=== PATIENT | female | born 1985 | race African-American/Black ===

== ENCOUNTER 2020-10-30 12:41 | Inpatient (IN) | payer OTHER ==
[2020-10-30 13:14] VITALS: BMI 25.4
[2020-10-30] MEDS ORDERED: ONDANSETRON *ODT* 4 MG TABLET SL PRN (14:27)
[2020-10-30] MEDS ORDERED: ACETAMINOPHEN 325 MG TABLET (FP) PO PRN ×2 (14:27)
[2020-10-30] MEDS ORDERED: IBUPROFEN 400 MG TABLET (FP) PO PRN (14:27)
[2020-10-30] MEDS ORDERED: MAGNESIUM HYDROX 2400MG/30ML ORAL SUSPENSION 30 ML CUP PO PRN (14:27)
[2020-10-30] MEDS ORDERED: MAG HYDROX/AL HYDROX/SIMETH 30 ML UNIT-DOSE CUP PO PRN (14:27)
[2020-10-30] MEDS ORDERED: MENTHOL/PHENOL 1 EACH UD MM PRN (14:27)
[2020-10-30] MEDS ORDERED: METHOCARBAMOL 500 MG TABLET PO PRN (14:27)
[2020-10-30] MEDS ORDERED: NICOTINE POLACRILEX 2 MG GUM BUC PRN (14:27)
[2020-10-30] MEDS ORDERED: BISMUTH SUBSALICYLATE 524 MG/30 ML UD PO PRN (14:27)
[2020-10-30] MEDS ORDERED: MAGNESIUM CITRATE 300 ML BOTTLE PO PRN (14:27)
[2020-10-30] MEDS ORDERED: chlordiazePOXIDE HCL 25 MG CAPSULE PO PRN (14:27)
[2020-10-30] MEDS: chlordiazePOXIDE HCL 25 MG CAPSULE PO SCH ×2 (17:10→22:16)
[2020-10-30] MEDS: hydrOXYzine PAMOATE 25 MG CAPSULE (FP) PO SCH ×2 (17:11→22:15)
[2020-10-30] MEDS ORDERED: MELATONIN 5 MG TABLETS PO SCH (22:00)
[2020-10-30] MEDS: GABAPENTIN 300 MG CAPSULE PO SCH (22:15)
[2020-10-30] MEDS: THIAMINE HCL 100 MG TABLET (FP) PO SCH (22:15)
[2020-10-30] MEDS: DIVALPROEX SODIUM 500 MG TABLET E.C. PO SCH (22:15)
[2020-10-31] MEDS: chlordiazePOXIDE HCL 25 MG CAPSULE PO SCH ×4 (05:35→22:14)
[2020-10-31] MEDS: hydrOXYzine PAMOATE 25 MG CAPSULE (FP) PO SCH ×5 (05:35→22:12)
[2020-10-31] MEDS: GABAPENTIN 300 MG CAPSULE PO SCH ×2 (10:14→22:12)
[2020-10-31] MEDS: DIVALPROEX SODIUM 500 MG TABLET E.C. PO SCH ×2 (10:14→22:12)
[2020-10-31] MEDS: PRENATAL VITAMINS W/ FOLIC ACID TABLET (FP) PO SCH (10:15)
[2020-10-31] MEDS ORDERED: DIVALPROEX SODIUM 500 MG TABLET E.C. PO SCH (10:30)
[2020-10-31 10:41] LABS: POTASSIUM 4.2 mmol/L (3.5-5.1)
[2020-10-31 10:42] LABS: HEMATOCRIT 36.6 % (32.4-45.2); HEMOGLOBIN 12.5 GM/dL (10.7-15.3); MCH 31.6 pg (25.7-33.7); MCHC 34.1 g/dl (32.0-36.0); MEAN CELL VOLUME 92.7 fl (80-96); MEAN PLT VOLUME 10.2 fl (7.5-11.1); PLATELET COUNT 255 K/MM3 (134-434); RBC 3.95 M/mm3 (3.60-5.2); RDW 14.8 % (11.6-15.6); WHITE BLOOD COUNT 4.2 K/mm3 (4.0-10.0)
[2020-10-31 10:44] LABS: ALBUMIN 2.8 g/dl (3.4-5.0); CALCIUM 8.4 mg/dL (8.5-10.1)
[2020-10-31 10:46] LABS: BLOOD UREA NITROGEN 12.2 mg/dL (7-18)
[2020-10-31 10:48] LABS: BILIRUBIN,TOTAL 0.7 mg/dL (0.2-1); TOT PROT 6.3 g/dl (6.4-8.2)
[2020-10-31] MEDS ORDERED: FLU VACCINE (FLULAVAL) PF 60 MCG/0.5 ML SYRINGE 2020-2021 IM ONE (12:00)
[2020-10-31] MEDS: MELATONIN 5 MG TABLETS PO PRN (22:12)
[2020-10-31] MEDS: THIAMINE HCL 100 MG TABLET (FP) PO SCH (22:12)
[2020-11-01] MEDS: chlordiazePOXIDE HCL 25 MG CAPSULE PO SCH ×4 (05:47→22:11)
[2020-11-01] MEDS: hydrOXYzine PAMOATE 25 MG CAPSULE (FP) PO SCH ×5 (05:47→22:11)
[2020-11-01] MEDS: PRENATAL VITAMINS W/ FOLIC ACID TABLET (FP) PO SCH (10:18)
[2020-11-01] MEDS: GABAPENTIN 300 MG CAPSULE PO SCH ×2 (10:18→22:11)
[2020-11-01] MEDS: DIVALPROEX SODIUM 500 MG TABLET E.C. PO SCH ×2 (10:18→22:11)
[2020-11-01] MEDS: DARUNAVIR/COB/EMTRI/TENOF (SYMTUZA) TABLET (NF) PO SCH (13:01)
[2020-11-01] MEDS: THIAMINE HCL 100 MG TABLET (FP) PO SCH (22:11)
[2020-11-01] MEDS: MELATONIN 5 MG TABLETS PO PRN (22:11)
[2020-11-02] MEDS ORDERED: chlordiazePOXIDE HCL 10 MG CAPSULE PO PRN
[2020-11-02] MEDS: chlordiazePOXIDE HCL 10 MG CAPSULE PO SCH ×2 (05:50→10:08)
[2020-11-02] MEDS: hydrOXYzine PAMOATE 25 MG CAPSULE (FP) PO SCH ×2 (05:50→10:08)
[2020-11-02 09:25] VITALS: BP 103/60; PULSE 93; TEMP 98.2
[2020-11-02] MEDS: PRENATAL VITAMINS W/ FOLIC ACID TABLET (FP) PO SCH (10:07)
[2020-11-02] MEDS: GABAPENTIN 300 MG CAPSULE PO SCH (10:08)
[2020-11-02] MEDS: DIVALPROEX SODIUM 500 MG TABLET E.C. PO SCH (10:08)
[2020-11-02] MEDS: DARUNAVIR/COB/EMTRI/TENOF (SYMTUZA) TABLET (NF) PO SCH (10:08)
[2020-11-03] MEDS ORDERED: chlordiazePOXIDE HCL 10 MG CAPSULE PO SCH (05:00)
[2020-11-04] MEDS ORDERED: chlordiazePOXIDE HCL 10 MG CAPSULE PO ONE (05:00)
== END 2020-11-02 11:45 | disposition home or self-care (01) | DRG 774 ==
LOC: YASAS 12:41 → Y3N 15:03
PROVIDERS: ADMIT Allergy & Immunology; ATTEND Allergy & Immunology
PROC: HZ2ZZZZ Detoxification Services for Substance Abuse Treatment (ICD-10-PCS; principal; 2020-10-28)
DX: F10.230 Alcohol dependence with withdrawal, uncomplicated (principal); F14.20 Cocaine dependence, uncomplicated; F12.20 Cannabis dependence, uncomplicated; F17.213 Nicotine dependence, cigarettes, with withdrawal; F19.24 Other psychoactive substance dependence with psychoactive substance-induced mood disorder; F19.282 Other psychoactive substance dependence with psychoactive substance-induced sleep disorder; F31.9 Bipolar disorder, unspecified; Z21 Asymptomatic human immunodeficiency virus [HIV] infection status; K21.9 Gastro-esophageal reflux disease without esophagitis; M54.5 Low back pain; G89.29 Other chronic pain; D57.3 Sickle-cell trait; G62.9 Polyneuropathy, unspecified; G40.909 Epilepsy, unspecified, not intractable, without status epilepticus; Z20.2 Contact with and (suspected) exposure to infections with a predominantly sexual mode of transmission
CPT/HCPCS: 36415; 80053; 81025; 85027; 86593; 86780; 93005; 93010; C9803; G0008; Q2036; U0003

== ENCOUNTER 2021-10-13 11:45 | Inpatient (IN) | payer OTHER ==
[2021-10-13] MEDS ORDERED: MAG HYDROX/AL HYDROX/SIMETH 30 ML UNIT-DOSE CUP PO PRN (12:55)
[2021-10-13] MEDS ORDERED: ONDANSETRON *ODT* 4 MG TABLET SL PRN (12:55)
[2021-10-13] MEDS ORDERED: METHOCARBAMOL 500 MG TABLET PO PRN (12:55)
[2021-10-13] MEDS ORDERED: IBUPROFEN 400 MG TABLET (FP) PO PRN (12:55)
[2021-10-13] MEDS ORDERED: MAGNESIUM HYDROX 2400MG/30ML ORAL SUSPENSION 30 ML CUP PO PRN (12:55)
[2021-10-13] MEDS ORDERED: LORazepam 1 MG TABLET PO PRN (12:55)
[2021-10-13] MEDS ORDERED: ACETAMINOPHEN 325 MG TABLET (FP) PO PRN ×2 (12:55)
[2021-10-13] MEDS ORDERED: MAGNESIUM CITRATE 300 ML BOTTLE PO PRN (12:55)
[2021-10-13] MEDS ORDERED: MENTHOL/PHENOL 1 EACH UD MM PRN (12:55)
[2021-10-13] MEDS ORDERED: BISMUTH SUBSALICYLATE 524 MG/30 ML PO PRN (12:55)
[2021-10-13 14:22] VITALS: BMI 25.2
[2021-10-13] MEDS: hydrOXYzine PAMOATE 25 MG CAPSULE (FP) PO SCH ×3 (15:31→22:43)
[2021-10-13] MEDS: LORazepam 2 MG TABLET PO SCH ×2 (17:18→22:45)
[2021-10-13] MEDS ORDERED: DIVALPROEX SODIUM 500 MG TABLET E.C. PO SCH (22:00)
[2021-10-13] MEDS: THIAMINE HCL 100 MG TABLET (FP) PO SCH (22:43)
[2021-10-13] MEDS: DIVALPROEX NA *ER* EXTEND REL 500 MG TABLET.SA (FP) PO SCH (22:43)
[2021-10-13] MEDS: FLUOCINONIDE 0.05% CREAM (15 GM TUBE) TP SCH (22:43)
[2021-10-13] MEDS: MELATONIN 5 MG TABLETS PO SCH (22:43)
[2021-10-13] MEDS: GABAPENTIN 300 MG CAPSULE PO SCH (22:43)
[2021-10-13] MEDS: FAMOTIDINE 40 MG/5 ML ORAL SUSPENSION PO SCH (22:44)
[2021-10-14] MEDS: hydrOXYzine PAMOATE 25 MG CAPSULE (FP) PO SCH ×5 (06:33→22:20)
[2021-10-14] MEDS: LORazepam 2 MG TABLET PO SCH ×4 (06:33→22:21)
[2021-10-14] MEDS: DARUNAVIR/COB/EMTRI/TENOF (SYMTUZA) TABLET (NF) PO SCH (07:33)
[2021-10-14] MEDS: FLUOCINONIDE 0.05% CREAM (15 GM TUBE) TP SCH ×2 (10:12→22:19)
[2021-10-14] MEDS: GABAPENTIN 300 MG CAPSULE PO SCH ×2 (10:13→22:20)
[2021-10-14] MEDS: PANTOPRAZOLE 40 MG TABLET PO SCH (10:13)
[2021-10-14] MEDS: DIVALPROEX NA *ER* EXTEND REL 500 MG TABLET.SA (FP) PO SCH ×2 (10:13→22:20)
[2021-10-14] MEDS: FAMOTIDINE 40 MG/5 ML ORAL SUSPENSION PO SCH ×2 (10:14→22:19)
[2021-10-14] MEDS: PRENATAL VITAMINS W/ FOLIC ACID TABLET (FP) PO SCH (10:14)
[2021-10-14 10:33] LABS: HEMATOCRIT 39.2 % (32.4-45.2); HEMOGLOBIN 13.2 GM/dL (10.7-15.3); MCH 30.9 pg (25.7-33.7); MCHC 33.6 g/dl (32.0-36.0); MEAN PLT VOLUME 11.2 fl (7.5-11.1); PLATELET COUNT 210 10^3/uL (134-434); RBC 4.26 M/mm3 (3.60-5.2); RDW 14.8 % (11.6-15.6); WHITE BLOOD COUNT 4.3 K/mm3 (4.0-10.0)
[2021-10-14 10:38] LABS: ALBUMIN 3.5 g/dl (3.4-5.0); BLOOD UREA NITROGEN 15.8 mg/dL (7-18); CALCIUM 9.4 mg/dL (8.5-10.1)
[2021-10-14 10:41] LABS: CREATININE 1.3 mg/dL (0.55-1.3)
[2021-10-14 10:43] LABS: BILIRUBIN,TOTAL 0.5 mg/dL (0.2-1); TOT PROT 7.7 g/dl (6.4-8.2)
[2021-10-14] MEDS: ARIPiprazole 5 MG TABLET PO SCH (10:47)
[2021-10-14] MEDS: NICOTINE 10 MG CARTRIDGE (INHALER) IH PRN (22:19)
[2021-10-14] MEDS: THIAMINE HCL 100 MG TABLET (FP) PO SCH (22:20)
[2021-10-14] MEDS: MELATONIN 5 MG TABLETS PO SCH (22:20)
[2021-10-15] MEDS: LORazepam 1 MG TABLET PO SCH ×4 (05:56→22:28)
[2021-10-15] MEDS: hydrOXYzine PAMOATE 25 MG CAPSULE (FP) PO SCH ×5 (05:58→22:27)
[2021-10-15] MEDS: DARUNAVIR/COB/EMTRI/TENOF (SYMTUZA) TABLET (NF) PO SCH (07:27)
[2021-10-15] MEDS: FAMOTIDINE 40 MG/5 ML ORAL SUSPENSION PO SCH ×2 (10:53→22:27)
[2021-10-15] MEDS: FLUOCINONIDE 0.05% CREAM (15 GM TUBE) TP SCH ×2 (10:54→22:30)
[2021-10-15] MEDS: GABAPENTIN 300 MG CAPSULE PO SCH ×2 (10:54→22:27)
[2021-10-15] MEDS: ARIPiprazole 5 MG TABLET PO SCH (10:54)
[2021-10-15] MEDS: PRENATAL VITAMINS W/ FOLIC ACID TABLET (FP) PO SCH (10:54)
[2021-10-15] MEDS: PANTOPRAZOLE 40 MG TABLET PO SCH (10:54)
[2021-10-15] MEDS: DIVALPROEX NA *ER* EXTEND REL 500 MG TABLET.SA (FP) PO SCH ×2 (10:55→22:27)
[2021-10-15] MEDS: MELATONIN 5 MG TABLETS PO SCH (22:27)
[2021-10-15] MEDS: THIAMINE HCL 100 MG TABLET (FP) PO SCH (22:28)
[2021-10-16] MEDS ORDERED: LORazepam 0.5 MG TABLET PO PRN
[2021-10-16] MEDS: hydrOXYzine PAMOATE 25 MG CAPSULE (FP) PO SCH ×5 (06:15→22:07)
[2021-10-16] MEDS: LORazepam 0.5 MG TABLET PO SCH ×4 (06:15→22:07)
[2021-10-16] MEDS: NICOTINE 10 MG CARTRIDGE (INHALER) IH PRN (09:28)
[2021-10-16] MEDS: FAMOTIDINE 40 MG/5 ML ORAL SUSPENSION PO SCH ×2 (10:09→23:40)
[2021-10-16] MEDS: PRENATAL VITAMINS W/ FOLIC ACID TABLET (FP) PO SCH (10:09)
[2021-10-16] MEDS: ARIPiprazole 5 MG TABLET PO SCH (10:09)
[2021-10-16] MEDS: GABAPENTIN 300 MG CAPSULE PO SCH ×2 (10:09→22:07)
[2021-10-16] MEDS: PANTOPRAZOLE 40 MG TABLET PO SCH (10:09)
[2021-10-16] MEDS: FLUOCINONIDE 0.05% CREAM (15 GM TUBE) TP SCH ×2 (10:12→23:34)
[2021-10-16] MEDS: DIVALPROEX NA *ER* EXTEND REL 500 MG TABLET.SA (FP) PO SCH ×2 (10:12→23:34)
[2021-10-16] MEDS: DARUNAVIR/COB/EMTRI/TENOF (SYMTUZA) TABLET (NF) PO SCH (10:12)
[2021-10-16] MEDS: THIAMINE HCL 100 MG TABLET (FP) PO SCH (22:07)
[2021-10-16] MEDS: MELATONIN 5 MG TABLETS PO SCH (22:07)
[2021-10-17] MEDS ORDERED: LORazepam 0.5 MG TABLET PO ONE (05:00)
[2021-10-17] MEDS: hydrOXYzine PAMOATE 25 MG CAPSULE (FP) PO SCH ×3 (06:07→14:46)
[2021-10-17] MEDS: DARUNAVIR/COB/EMTRI/TENOF (SYMTUZA) TABLET (NF) PO SCH (07:05)
[2021-10-17] MEDS: PRENATAL VITAMINS W/ FOLIC ACID TABLET (FP) PO SCH (10:19)
[2021-10-17] MEDS: FAMOTIDINE 40 MG/5 ML ORAL SUSPENSION PO SCH (10:20)
[2021-10-17] MEDS: GABAPENTIN 300 MG CAPSULE PO SCH (10:20)
[2021-10-17] MEDS: PANTOPRAZOLE 40 MG TABLET PO SCH (10:20)
[2021-10-17] MEDS: DIVALPROEX NA *ER* EXTEND REL 500 MG TABLET.SA (FP) PO SCH (10:20)
[2021-10-17] MEDS: ARIPiprazole 5 MG TABLET PO SCH (10:20)
[2021-10-17] MEDS: FLUOCINONIDE 0.05% CREAM (15 GM TUBE) TP SCH (10:25)
[2021-10-17 13:21] VITALS: BP 101/55; PULSE 72; TEMP 97.8
== END 2021-10-17 15:47 | disposition other institution (70) | DRG 774 ==
LOC: YASAS 11:45 → Y3N 14:06
PROVIDERS: ADMIT Allergy & Immunology; ATTEND Allergy & Immunology
PROC: HZ2ZZZZ Detoxification Services for Substance Abuse Treatment (ICD-10-PCS; principal; 2021-10-13)
DX: F10.230 Alcohol dependence with withdrawal, uncomplicated (principal); F14.20 Cocaine dependence, uncomplicated; F12.20 Cannabis dependence, uncomplicated; F17.213 Nicotine dependence, cigarettes, with withdrawal; F31.9 Bipolar disorder, unspecified; F19.24 Other psychoactive substance dependence with psychoactive substance-induced mood disorder; K21.9 Gastro-esophageal reflux disease without esophagitis; Z21 Asymptomatic human immunodeficiency virus [HIV] infection status; G62.9 Polyneuropathy, unspecified; G40.909 Epilepsy, unspecified, not intractable, without status epilepticus; D57.3 Sickle-cell trait; Z86.19 Personal history of other infectious and parasitic diseases; Z56.0 Unemployment, unspecified
CPT/HCPCS: 36415; 80053; 85027; 86593; 86780; C9803; U0003; U0005

== ENCOUNTER 2021-10-17 16:03 | Inpatient (IN) | payer OTHER ==
[~2021-10-17 16:03] MED LIST: ACETAMINOPHEN 325 MG TABLET (FP) PO PRN; LOPERAMIDE HCL 2 MG CAPSULE PO PRN; MAGNESIUM CITRATE 300 ML BOTTLE PO PRN; MAGNESIUM HYDROX 2400MG/30ML ORAL SUSPENSION 30 ML CUP PO PRN
[2021-10-17] MEDS: GABAPENTIN 300 MG CAPSULE PO SCH (21:41)
[2021-10-17] MEDS: MELATONIN 5 MG TABLETS PO SCH (21:42)
[2021-10-17] MEDS: THIAMINE HCL 100 MG TABLET (FP) PO SCH (21:42)
[2021-10-17] MEDS: NICOTINE 10 MG CARTRIDGE (INHALER) IH PRN (21:44)
[2021-10-17] MEDS ORDERED: DIVALPROEX NA *ER* EXTEND REL 500 MG TABLET.SA (FP) PO ONE (22:00)
[2021-10-18] MEDS ORDERED: SYMTUZA PO SCH (10:00)
[2021-10-18] MEDS: PANTOPRAZOLE 40 MG TABLET PO SCH (10:10)
[2021-10-18] MEDS: GABAPENTIN 300 MG CAPSULE PO SCH ×2 (10:10→22:01)
[2021-10-18] MEDS: ARIPiprazole 5 MG TABLET PO SCH (10:11)
[2021-10-18] MEDS: PRENATAL VITAMINS W/ FOLIC ACID TABLET (FP) PO SCH (10:11)
[2021-10-18] MEDS: DIVALPROEX NA *ER* EXTEND REL 500 MG TABLET.SA (FP) PO SCH ×2 (11:03→22:02)
[2021-10-18] MEDS: FLUOCINONIDE 0.05% CREAM (15 GM TUBE) TP SCH ×2 (12:50→22:03)
[2021-10-18] MEDS: NICOTINE 10 MG CARTRIDGE (INHALER) IH PRN (20:51)
[2021-10-18] MEDS: THIAMINE HCL 100 MG TABLET (FP) PO SCH (22:01)
[2021-10-18] MEDS: MELATONIN 5 MG TABLETS PO SCH (22:01)
[2021-10-19] MEDS: GABAPENTIN 300 MG CAPSULE PO SCH ×2 (10:21→21:41)
[2021-10-19] MEDS: FLUOCINONIDE 0.05% CREAM (15 GM TUBE) TP SCH ×2 (10:21→21:55)
[2021-10-19] MEDS: DIVALPROEX NA *ER* EXTEND REL 500 MG TABLET.SA (FP) PO SCH ×2 (10:21→21:43)
[2021-10-19] MEDS: ARIPiprazole 5 MG TABLET PO SCH (10:22)
[2021-10-19] MEDS: PANTOPRAZOLE 40 MG TABLET PO SCH (10:22)
[2021-10-19] MEDS: PRENATAL VITAMINS W/ FOLIC ACID TABLET (FP) PO SCH (10:22)
[2021-10-19] MEDS: NICOTINE 10 MG CARTRIDGE (INHALER) IH PRN (13:31)
[2021-10-19] MEDS: THIAMINE HCL 100 MG TABLET (FP) PO SCH (21:41)
[2021-10-19] MEDS: TOLNAFTATE 1% CREAM 15 GM TUBE TP SCH (21:42)
[2021-10-19] MEDS: SUVOREXANT 10 MG TABLET PO PRN (21:45)
[2021-10-20] MEDS: valACYclovir HCL 500 MG TABLET (FP) PO SCH (10:17)
[2021-10-20] MEDS: ARIPiprazole 5 MG TABLET PO SCH (10:17)
[2021-10-20] MEDS: DIVALPROEX NA *ER* EXTEND REL 500 MG TABLET.SA (FP) PO SCH ×2 (10:18→21:51)
[2021-10-20] MEDS: FLUOCINONIDE 0.05% CREAM (15 GM TUBE) TP SCH ×2 (10:18→21:51)
[2021-10-20] MEDS: GABAPENTIN 300 MG CAPSULE PO SCH ×2 (10:18→21:51)
[2021-10-20] MEDS: PRENATAL VITAMINS W/ FOLIC ACID TABLET (FP) PO SCH (10:18)
[2021-10-20] MEDS: PANTOPRAZOLE 40 MG TABLET PO SCH (10:19)
[2021-10-20] MEDS: TOLNAFTATE 1% CREAM 15 GM TUBE TP SCH ×2 (10:20→21:51)
[2021-10-20] MEDS: NICOTINE 10 MG CARTRIDGE (INHALER) IH PRN (14:22)
[2021-10-20] MEDS: THIAMINE HCL 100 MG TABLET (FP) PO SCH (21:50)
[2021-10-20] MEDS: metroNIDAZOLE 0.75% VAGINAL GEL 70 GM TUBE VG SCH (21:51)
[2021-10-20] MEDS: SUVOREXANT 10 MG TABLET PO PRN (21:53)
[2021-10-21] MEDS: MAG HYDROX/AL HYDROX/SIMETH 30 ML UNIT-DOSE CUP PO PRN (06:31)
[2021-10-21] MEDS: IBUPROFEN 400 MG TABLET (FP) PO PRN ×2 (07:24→17:03)
[2021-10-21] MEDS: valACYclovir HCL 500 MG TABLET (FP) PO SCH (10:40)
[2021-10-21] MEDS: PANTOPRAZOLE 40 MG TABLET PO SCH (10:40)
[2021-10-21] MEDS: TOLNAFTATE 1% CREAM 15 GM TUBE TP SCH ×2 (10:40→23:25)
[2021-10-21] MEDS: PRENATAL VITAMINS W/ FOLIC ACID TABLET (FP) PO SCH (10:40)
[2021-10-21] MEDS: ARIPiprazole 5 MG TABLET PO SCH (10:40)
[2021-10-21] MEDS: GABAPENTIN 300 MG CAPSULE PO SCH ×2 (10:40→21:35)
[2021-10-21] MEDS: DIVALPROEX NA *ER* EXTEND REL 500 MG TABLET.SA (FP) PO SCH ×2 (10:41→21:36)
[2021-10-21] MEDS: FLUOCINONIDE 0.05% CREAM (15 GM TUBE) TP SCH ×2 (10:41→21:37)
[2021-10-21] MEDS: MENTHOL/PHENOL 1 EACH UD MM PRN (17:04)
[2021-10-21] MEDS: THIAMINE HCL 100 MG TABLET (FP) PO SCH (21:35)
[2021-10-21] MEDS: metroNIDAZOLE 0.75% VAGINAL GEL 70 GM TUBE VG SCH (21:37)
[2021-10-22] MEDS: IBUPROFEN 400 MG TABLET (FP) PO PRN ×3 (03:20→21:43)
[2021-10-22] MEDS: MAG HYDROX/AL HYDROX/SIMETH 30 ML UNIT-DOSE CUP PO PRN ×2 (03:21→23:26)
[2021-10-22] MEDS: MENTHOL/PHENOL 1 EACH UD MM PRN ×2 (03:22→09:48)
[2021-10-22] MEDS: GABAPENTIN 300 MG CAPSULE PO SCH ×2 (09:45→21:41)
[2021-10-22] MEDS: PANTOPRAZOLE 40 MG TABLET PO SCH (09:45)
[2021-10-22] MEDS: ARIPiprazole 5 MG TABLET PO SCH (09:45)
[2021-10-22] MEDS: valACYclovir HCL 500 MG TABLET (FP) PO SCH (09:45)
[2021-10-22] MEDS: FLUOCINONIDE 0.05% CREAM (15 GM TUBE) TP SCH ×2 (09:46→21:45)
[2021-10-22] MEDS: TOLNAFTATE 1% CREAM 15 GM TUBE TP SCH ×2 (09:46→22:05)
[2021-10-22] MEDS: PRENATAL VITAMINS W/ FOLIC ACID TABLET (FP) PO SCH (09:46)
[2021-10-22] MEDS: DIVALPROEX NA *ER* EXTEND REL 500 MG TABLET.SA (FP) PO SCH ×2 (09:47→21:41)
[2021-10-22] MEDS: THIAMINE HCL 100 MG TABLET (FP) PO SCH (21:41)
[2021-10-22] MEDS: metroNIDAZOLE 0.75% VAGINAL GEL 70 GM TUBE VG SCH (22:05)
[2021-10-23] MEDS: PRENATAL VITAMINS W/ FOLIC ACID TABLET (FP) PO SCH (10:31)
[2021-10-23] MEDS: GABAPENTIN 300 MG CAPSULE PO SCH ×2 (10:32→21:39)
[2021-10-23] MEDS: ARIPiprazole 5 MG TABLET PO SCH (10:32)
[2021-10-23] MEDS: FLUOCINONIDE 0.05% CREAM (15 GM TUBE) TP SCH ×2 (10:32→21:40)
[2021-10-23] MEDS: PANTOPRAZOLE 40 MG TABLET PO SCH (10:32)
[2021-10-23] MEDS: valACYclovir HCL 500 MG TABLET (FP) PO SCH (10:32)
[2021-10-23] MEDS: MENTHOL/PHENOL 1 EACH UD MM PRN (10:33)
[2021-10-23] MEDS: TOLNAFTATE 1% CREAM 15 GM TUBE TP SCH ×2 (10:33→21:40)
[2021-10-23] MEDS: DIVALPROEX NA *ER* EXTEND REL 500 MG TABLET.SA (FP) PO SCH ×2 (10:33→21:40)
[2021-10-23] MEDS: IBUPROFEN 400 MG TABLET (FP) PO PRN ×2 (10:34→21:42)
[2021-10-23] MEDS: MAG HYDROX/AL HYDROX/SIMETH 30 ML UNIT-DOSE CUP PO PRN (17:39)
[2021-10-23] MEDS: metroNIDAZOLE 0.75% VAGINAL GEL 70 GM TUBE VG SCH (21:40)
[2021-10-23] MEDS: THIAMINE HCL 100 MG TABLET (FP) PO SCH (21:40)
[2021-10-24] MEDS: GABAPENTIN 300 MG CAPSULE PO SCH ×2 (10:57→21:44)
[2021-10-24] MEDS: PRENATAL VITAMINS W/ FOLIC ACID TABLET (FP) PO SCH (10:57)
[2021-10-24] MEDS: PANTOPRAZOLE 40 MG TABLET PO SCH (10:57)
[2021-10-24] MEDS: FLUOCINONIDE 0.05% CREAM (15 GM TUBE) TP SCH ×2 (10:57→21:47)
[2021-10-24] MEDS: ARIPiprazole 5 MG TABLET PO SCH (10:57)
[2021-10-24] MEDS: TOLNAFTATE 1% CREAM 15 GM TUBE TP SCH ×2 (10:58→21:45)
[2021-10-24] MEDS: valACYclovir HCL 500 MG TABLET (FP) PO SCH (10:58)
[2021-10-24] MEDS: DIVALPROEX NA *ER* EXTEND REL 500 MG TABLET.SA (FP) PO SCH ×2 (10:58→21:47)
[2021-10-24] MEDS: AMOXICILLIN 500 MG CAPSULE (FP) PO SCH ×2 (14:00→21:44)
[2021-10-24] MEDS: THIAMINE HCL 100 MG TABLET (FP) PO SCH (21:44)
[2021-10-24] MEDS: metroNIDAZOLE 0.75% VAGINAL GEL 70 GM TUBE VG SCH (21:45)
[2021-10-24] MEDS: MELATONIN 5 MG TABLETS PO SCH (21:45)
[2021-10-25] MEDS: AMOXICILLIN 500 MG CAPSULE (FP) PO SCH ×3 (06:38→21:58)
[2021-10-25] MEDS: ARIPiprazole 5 MG TABLET PO SCH (10:57)
[2021-10-25] MEDS: PRENATAL VITAMINS W/ FOLIC ACID TABLET (FP) PO SCH (10:57)
[2021-10-25] MEDS: GABAPENTIN 300 MG CAPSULE PO SCH ×2 (10:57→21:57)
[2021-10-25] MEDS: valACYclovir HCL 500 MG TABLET (FP) PO SCH (10:57)
[2021-10-25] MEDS: PANTOPRAZOLE 40 MG TABLET PO SCH (10:57)
[2021-10-25] MEDS: FLUOCINONIDE 0.05% CREAM (15 GM TUBE) TP SCH ×2 (10:58→21:58)
[2021-10-25] MEDS: TOLNAFTATE 1% CREAM 15 GM TUBE TP SCH ×2 (10:58→21:57)
[2021-10-25] MEDS: DIVALPROEX NA *ER* EXTEND REL 500 MG TABLET.SA (FP) PO SCH ×2 (10:58→21:58)
[2021-10-25] MEDS: NICOTINE 10 MG CARTRIDGE (INHALER) IH PRN (14:03)
[2021-10-25] MEDS: MELATONIN 5 MG TABLETS PO SCH (21:57)
[2021-10-25] MEDS: THIAMINE HCL 100 MG TABLET (FP) PO SCH (21:57)
[2021-10-26] MEDS: AMOXICILLIN 500 MG CAPSULE (FP) PO SCH (06:23)
[2021-10-26 07:25] VITALS: BP 131/73; PULSE 100; TEMP 97.9
[2021-10-26] MEDS: PRENATAL VITAMINS W/ FOLIC ACID TABLET (FP) PO SCH (09:02)
[2021-10-26] MEDS: GABAPENTIN 300 MG CAPSULE PO SCH (09:02)
[2021-10-26] MEDS: DIVALPROEX NA *ER* EXTEND REL 500 MG TABLET.SA (FP) PO SCH (09:02)
[2021-10-26] MEDS: valACYclovir HCL 500 MG TABLET (FP) PO SCH (09:02)
[2021-10-26] MEDS: PANTOPRAZOLE 40 MG TABLET PO SCH (09:02)
[2021-10-26] MEDS: FLUOCINONIDE 0.05% CREAM (15 GM TUBE) TP SCH (09:03)
[2021-10-26] MEDS: TOLNAFTATE 1% CREAM 15 GM TUBE TP SCH (09:03)
[2021-10-26] MEDS: ARIPiprazole 5 MG TABLET PO SCH (09:04)
== END 2021-10-26 10:10 | disposition home or self-care (01) | DRG 772 ==
LOC: YASAS 16:03 → Y5N 16:04
PROVIDERS: ADMIT Allergy & Immunology; ATTEND Allergy & Immunology
PROC: HZ42ZZZ Group Counseling for Substance Abuse Treatment, Cognitive-Behavioral (ICD-10-PCS; principal; 2021-10-17)
DX: F10.20 Alcohol dependence, uncomplicated (principal); F14.20 Cocaine dependence, uncomplicated; F12.20 Cannabis dependence, uncomplicated; F17.210 Nicotine dependence, cigarettes, uncomplicated; F31.9 Bipolar disorder, unspecified; F19.282 Other psychoactive substance dependence with psychoactive substance-induced sleep disorder; K21.9 Gastro-esophageal reflux disease without esophagitis; J03.90 Acute tonsillitis, unspecified; Z21 Asymptomatic human immunodeficiency virus [HIV] infection status; G40.909 Epilepsy, unspecified, not intractable, without status epilepticus; G62.9 Polyneuropathy, unspecified; M54.59 Other low back pain; G89.29 Other chronic pain; D57.3 Sickle-cell trait; Z86.19 Personal history of other infectious and parasitic diseases; Z56.0 Unemployment, unspecified; Z59.01 Sheltered homelessness
CPT/HCPCS: 36415; 80164; 87491; 87591; 87661